=== PATIENT | female | born 1955 | race Caucasian/White ===

== ENCOUNTER → 2018-01-04 | Outpatient (CLI) | payer OTHER ==
[~2018-01-04] MED LIST: ALB17R INH; AMLO-1 PO; AMLO-98 PO; ATOR20TA22 PO; AZI250 PO; BUPXL150 PO; CLO1 PO; DIOVAN; FLU20 PO; HYDR-4309 PO; HYDR473S4 PO; LEVO50TA86 PO; LISI-362 PO; ONDA4TAB PO; TRAM-420 PO; TRAZ-156 PO
[2018-01-04 12:34] LABS: PLATELET COUNT, AUTOMATED 353 K/uL (150-450)
== END ==
LOC: LAB 12:11
PROVIDERS: ATTEND Internal Medicine Nephrology
DX: I12.9 Hypertensive chronic kidney disease with stage 1 through stage 4 chronic kidney disease, or unspecified chronic kidney disease (principal); N18.3 Chronic kidney disease, stage 3 (moderate)
CPT/HCPCS: 36415; 82040; 82310; 82374; 82435; 82565; 82570; 82947; 84100; 84132; 84156; 84295; 84520; 85025

== ENCOUNTER 2018-12-01 13:24 | Emergency (ER) | payer OTHER ==
[~2018-12-01 13:24] MED LIST changes: -HYDR-4309 PO; +HYDR-653 PO; -TRAZ-156 PO; +TRAZ50TA34 PO
[2018-12-01] MEDS ORDERED: DIPHTH/TETANUS/ACEL. PERTUSSIS IM ONLY ONE (13:35)
[2018-12-01] MEDS ORDERED: ACETAMINOPHEN 500 MG TAB PO ONE (13:35)
--- NOTE | 2018-12-01 13:35 | ER Report ---
History and Physical Time Seen By MD: 13:33 HPI/ROS CHIEF COMPLAINT: Jaw pain laceration HISTORY OF PRESENT ILLNESS: 63-year-old female mechanical fall tripping over a curb on her jaw she an obvious chin laceration and pain to the left transman dibular joint with some mild submandibular discomfort as well able to open her mouth but has some pain with full opening some mild tenderness with mastication patient denies any loss of consciousness any neck pain or discomfort or additional complaints REVIEW OF SYSTEMS: Respiratory: No cough, no dyspnea. Cardiovascular: No chest pain, no palpitations. Gastrointestinal: No vomiting, no abdominal pain. Musculoskeletal: Jaw pain Remainder of the 14 system rev: Yes Allergies: Coded Allergies: codeine (Unverified Adverse Reaction, Severe, SEVERE HEADACHE, 12/01/18) Penicillins (Unverified Adverse Reaction, Intermediate, HIVES, 12/01/18) Home Meds Reported Medications Trazodone Hcl (TRAZODONE HCL) 50 Mg Tablet, 50 MG PO QHS 06/06/15 Bupropion Hcl (Wellbutrin Xl) 150 Mg Tabcr, 150 MG PO QDAY, 0 Refills Take three 150mg tablets by mouth daily. 06/22/10 Fluoxetine Hcl (Prozac) 20 Mg Cap, 20 MG PO QDAY, 0 Refills 06/22/10 Clonazepam (Klonopin) 1 Mg Tab, 0.5 MG PO QHS, 0 Refills 06/22/10 Lisinopril (Lisinopril) 10 Mg Tablet, 10 MG PO DAILY, 0 Refills 06/22/10 Atorvastatin Calcium (Lipitor) 20 Mg Tablet, 20 MG PO DAILY 06/22/10 Reviewed Nurses Notes: Yes Old Medical Records Reviewed: Yes Hx Smoking: No Smoking Status: Never Smoker Hx Substance Use Disorder: No Hx Alcohol Use: No Constitutional Vital Sign - Last 24 Hours 12/01/18 12/01/18 12/01/18 12/01/18 13:24 13:29 13:29 13:30 Temp 98.5 Pulse ??? 69 B/P (MAP) 138/120 (126) 128/84 128/84 (99) Pulse Ox 95 O2 Delivery Room Air 12/01/18 12/01/18 12/01/18 12/01/18 13:45 13:54 14:15 14:24 Pulse 66 66 B/P (MAP) 124/89 (101) 127/79 (95) Pulse Ox 94 94 12/01/18 12/01/18 12/01/18 12/01/18 14:30 14:35 14:45 15:00 Pulse 64 B/P (MAP) 119/81 (94) 123/84 (97) 120/92 (101) Pulse Ox 91 12/01/18 12/01/18 12/01/18 12/01/18 15:05 15:15 15:30 15:35 Pulse 63 60 B/P (MAP) 123/82 (96) 117/84 (95) Pulse Ox 93 90 12/01/18 12/01/18 12/01/18 15:45 16:00 16:05 Pulse 60 B/P (MAP) 119/81 (94) 121/83 (96) Pulse Ox 92 Physical Exam General Appearance: The patient is alert, has no immediate need for airway pr otection and no current signs of toxicity. [ ] Eyes: Pupils equal and round no injection. Respiratory: Chest is non tender, lungs are clear to auscultation. Cardiac: regular rate and rhythm [ ] Gastrointestinal: Abdomen is soft and non tender, no masses, bowel sounds normal. Musculoskeletal: Neck: Neck is supple and non tender. Extremities have full range of motion and are non tender. Skin: No rashes or lesions. 3.5-4 cm angular laceration on the underneath of the submental area of the jaw Gen. examination some mild tenderness to palpation of the TMJ joint no obvious dislocation subluxation patient's neurovascular intact some tenderness to palpation in the submental area as well DIFFERENTIAL DIAGNOSIS: After history and physical exam differential diagnosis was considered for jaw dislocation jaw fractured jaw contusion laceration Medical Decision Making Data Points Result Diagram: 12/01/18 1611 12/01/18 1611 Laboratory Hematology Test 12/01/18 16:11 Red Blood Count 4.25 M/uL (4.17-5.56) Mean Corpuscular Volume 93.7 fL (80.0-96.0) Mean Corpuscular Hemoglobin 31.5 pg (26.0-33.0) Mean Corpuscular Hemoglobin Concent 33.6 g/dL (32.0-36.0) Red Cell Distribution Width 13.6 % (11.5-14.5) Mean Platelet Volume 6.6 fL (7.2-11.1) Neutrophils (%) (Auto) 77.5 % (39.4-72.5) Lymphocytes (%) (Auto) 12.8 % (17.6-49.6) Monocytes (%) (Auto) 7.5 % (4.1-12.4) Eosinophils (%) (Auto) 1.8 % (0.4-6.7) Basophils (%) (Auto) 0.4 % (0.3-1.4) Nucleated RBC Relative Count (auto) 0.0 /100WBC Neutrophils # (Auto) 6.3 K/uL (2.0-7.4) Lymphocytes # (Auto) 1.0 K/uL (1.3-3.6) Monocytes # (Auto) 0.6 K/uL (0.3-1.0) Eosinophils # (Auto) 0.1 K/uL (0.0-0.5) Basophils # (Auto) 0.0 K/uL (0.0-0.1) Nucleated RBC Absolute Count (auto) 0.00 K/uL Sodium Level 139 mmol/L (137-145) Potassium Level 4.8 mmol/L (3.5-5.0) Chloride Level 109 mmol/L (98-107) Carbon Dioxide Level 26 mmol/L (22-31) Blood Urea Nitrogen 10 mg/dl (7-18) Creatinine 1.20 mg/dl (0.52-1.04) Glomerular Filtration Rate Calc 45.7 Random Glucose 102 mg/dl (75-110) Calcium Level 9.2 mg/dl (8.4-10.2) Phosphorus Level 2.9 mg/dl (2.5-4.5) Magnesium Level 2.1 mg/dl (1.7-2.2) Total Bilirubin 1.8 mg/dl (0.2-1.3) Aspartate Amino Transf (AST/SGOT) 29 U/L (0-35) Alanine Aminotransferase (ALT/SGPT) 46 U/L (0-56) Alkaline Phosphatase 73 U/L (0-126) Total Protein 7.0 g/dl (6.3-8.2) Albumin 4.3 g/dl (3.5-5.0) Thyroid Stimulating Hormone (TSH) 1.19 uIU/ml (0.46-4.68) Free Thyroxine 1.28 ng/dl (0.78-2.19) [place] Level 0.6 mmol/L (0.6-1.2) Chemistry Test 12/01/18 16:11 White Blood Count 8.1 k/uL (4.5-11.0) Red Blood Count 4.25 M/uL (4.17-5.56) Hemoglobin 13.4 g/dL (12.0-16.0) Hematocrit 39.8 % (34.0-47.0) Mean Corpuscular Volume 93.7 fL (80.0-96.0) Mean Corpuscular Hemoglobin 31.5 pg (26.0-33.0) Mean Corpuscular Hemoglobin Concent 33.6 g/dL (32.0-36.0) Red Cell Distribution Width 13.6 % (11.5-14.5) Platelet Count 373 K/uL (150-450) Mean Platelet Volume 6.6 fL (7.2-11.1) Neutrophils (%) (Auto) 77.5 % (39.4-72.5) Lymphocytes (%) (Auto) 12.8 % (17.6-49.6) Monocytes (%) (Auto) 7.5 % (4.1-12.4) Eosinophils (%) (Auto) 1.8 % (0.4-6.7) Basophils (%) (Auto) 0.4 % (0.3-1.4) Nucleated RBC Relative Count (auto) 0.0 /100WBC Neutrophils # (Auto) 6.3 K/uL (2.0-7.4) Lymphocytes # (Auto) 1.0 K/uL (1.3-3.6) Monocytes # (Auto) 0.6 K/uL (0.3-1.0) Eosinophils # (Auto) 0.1 K/uL (0.0-0.5) Basophils # (Auto) 0.0 K/uL (0.0-0.1) Nucleated RBC Absolute Count (auto) 0.00 K/uL Glomerular Filtration Rate Calc 45.7 Calcium Level 9.2 mg/dl (8.4-10.2) Phosphorus Level 2.9 mg/dl (2.5-4.5) Magnesium Level 2.1 mg/dl (1.7-2.2) Total Bilirubin 1.8 mg/dl (0.2-1.3) Aspartate Amino Transf (AST/SGOT) 29 U/L (0-35) Alanine Aminotransferase (ALT/SGPT) 46 U/L (0-56) Alkaline Phosphatase 73 U/L (0-126) Total Protein 7.0 g/dl (6.3-8.2) Albumin 4.3 g/dl (3.5-5.0) Thyroid Stimulating Hormone (TSH) 1.19 uIU/ml (0.46-4.68) Free Thyroxine 1.28 ng/dl (0.78-2.19) [place] Level 0.6 mmol/L (0.6-1.2) Toxicology Test 12/01/18 16:11 [place] Level 0.6 mmol/L (0.6-1.2) ED Course/Re-evaluation ED Course Procedural note 63-year-old female Ryan laceration 1% lidocaine without epinephrine was administered about 4 mL around the cutanea border of the laceration 6 inverted sutures with 4-0 nylon was placed with good cosmesis patient tolerated well sterile dressing applied copiously irrigated prior to laceration repair sterile dressing applied after Decision to Disposition Date: Dec 01, 2018 Decision to Disposition Time: 17:41 Depart Departure Latest Vital Signs Vital Signs Date Time Temp Pulse Resp B/P (MAP) Pulse Ox O2 Delivery O2 Flow Rate FiO2 12/01/18 16:05 60 92 12/01/18 16:00 121/83 (96) 12/01/18 13:29 98.5 Room Air Impression: Primary Impression: Thyroid mass Condition: Improved Disposition: HOME OR SELF-CARE Referrals: TIMOTHY HO DO (PCP) CARMELO YE JR, MD 1 Day Patient Instructions: Soft Tissue Mass (ED) ANDREA WHITE MD Dec 01, 2018 13:35
--- NOTE | 2018-12-01 14:45 | RADIOLOGY IMAGING REPORT ---
FACILITY: [facility] PATIENT NAME: Liana Santos : 1955 MR: [id number] V: [id number] EXAM DATE: ORDERING PHYSICIAN: ANDREA WHITE TECHNOLOGIST: Location: [facility] Patient: Liana Santos : 1955 Visit/Account:[id number] Date of Sevice: 12/01/2018 Exam type: MANDIBLE < 4 VIEWS History: Trauma fell on ice, cut chin, pain Comparison: None. Findings: There is a vertical fracture through the left side of the mandible just anterior to the mandibular ra mus. This appears relatively nondisplaced. The mandibular condyles were not well seen on the Janelle' s view therefore if a mandibular condyle fracture is of clinical concern a CT is recommended IMPRESSION: 1. There is a nondisplaced vertical fracture through the left-sided the mandible just anterior to th e ramus Mandibular condyles not ideally evaluated Report Dictated By: Liana Irizarry MD at 12/01/2018 2:34 PM Report E-Signed By: Liana Irizarry MD at 12/01/2018 2:42 PM WSN:[email or web address]
--- NOTE | 2018-12-01 15:13 | RADIOLOGY IMAGING REPORT ---
FACILITY: [facility] [place] PATIENT NAME: Liana Santos : 1955 MR: [id number] V: [id number] EXAM DATE: ORDERING PHYSICIAN: ANDREA WHITE TECHNOLOGIST: Location: [facility] [place] Patient: Liana Santos : 1955 Visit/Account:[id number] Date of Sevice: 12/01/2018 EXAMINATION: CT Head without intravenous contrast CT Cervical spine without intravenous contrast HISTORY: Trauma. TECHNIQUE: Head: Axial images were obtained from the skull base to the vertex without intravenous contrast. Sa gittal and coronal reformatted images are also submitted. Cervical spine: Axial images were obtained from the skull base through the upper thoracic spine with out IV contrast administration. Coronal and sagittal reformatted images were obtained from the axial source data. One of the following dose optimization techniques was utilized in the performance of this exam: Autom ated exposure control; adjustment of the mA and/or kV according to the patient's size; or use of an i terative reconstruction technique. Specific details can be referenced in the facility's radiology C T exam operational policy. COMPARISON: Brain MRI dated 01/28/2017. FINDINGS: HEAD: Brain volume: Mild generalized volume loss. Ventricles: Negative. Acute ischemic changes: None. Hemorrhage: None. Masses / edema: None. Aguayo-white: Mild encephalomalacia/gliosis in the right posterior temporal lobe. White matter: Negative. Vessels: Negative. Extra-axial: Negative. Calvarium / skull base: Negative. Visualized sinuses / orbits: Acute comminuted and mildly displaced left mandibular condyle fracture with dislocation of the left temporomandibular joint. CERVICAL SPINE: Alignment: Straightening of the normal lordosis with minimal convex rightward curvature. Cranio-cervical junction: Moderate degenerative changes in the atlantodental joint. Otherwise negativ e. Vertebral bodies: Negative. Posterior elements: Multilevel facet hypertrophy. Hardware: None. Disc Spaces: Multilevel degenerative disc disease. Soft tissues: Surgical clips in the region of the thyroid gland. The majority of the thyroid gland ap pears to have been removed and there is a large partially imaged mass in the left thyroid bed measuri ng at least 5.2 x 5.2 x 2.8 cm. Visualized upper chest: Negative. IMPRESSION: 1. No acute intracranial abnormality. 2. No acute cervical spine fracture. 3. Acute comminuted and mildly displaced fracture of left mandibular condyle with dislocation of the temporomandibular joint. 4. Surgical clips in the region of the thyroid gland. The majority of the thyroid gland appears to doshi ve been removed and there is a large partially imaged mass in the left thyroid bed measuring at least 5.2 x 5.2 x 2.8 cm. If this patient has a history of thyroid cancer this is suspicious for recurrenc e. 5. Multilevel degenerative disc disease and facet hypertrophy in the cervical spine. 6. Mild encephalomalacia/gliosis in the right posterior temporal lobe. Report Dictated By: Willem Oneil MD at 12/01/2018 2:55 PM Report E-Signed By: Willem Oneil MD at 12/01/2018 3:09 PM WSN:[id number]
--- NOTE | 2018-12-01 15:14 | RADIOLOGY IMAGING REPORT ---
FACILITY: [facility] PATIENT NAME: Liana Santos : 1955 MR: [id number] V: [id number] EXAM DATE: ORDERING PHYSICIAN: ANDREA WHITE TECHNOLOGIST: Location: [facility] Patient: Liana Santos : 1955 Visit/Account:[id number] Date of Sevice: 12/01/2018 EXAMINATION: CT Head without intravenous contrast CT Cervical spine without intravenous contrast HISTORY: Trauma. TECHNIQUE: Head: Axial images were obtained from the skull base to the vertex without intravenous contrast. Sa gittal and coronal reformatted images are also submitted. Cervical spine: Axial images were obtained from the skull base through the upper thoracic spine with out IV contrast administration. Coronal and sagittal reformatted images were obtained from the axial source data. One of the following dose optimization techniques was utilized in the performance of this exam: Autom ated exposure control; adjustment of the mA and/or kV according to the patient's size; or use of an i terative reconstruction technique. Specific details can be referenced in the facility's radiology C T exam operational policy. COMPARISON: Brain MRI dated 01/28/2017. FINDINGS: HEAD: Brain volume: Mild generalized volume loss. Ventricles: Negative. Acute ischemic changes: None. Hemorrhage: None. Masses / edema: None. Aguayo-white: Mild encephalomalacia/gliosis in the right posterior temporal lobe. White matter: Negative. Vessels: Negative. Extra-axial: Negative. Calvarium / skull base: Negative. Visualized sinuses / orbits: Acute comminuted and mildly displaced left mandibular condyle fracture with dislocation of the left temporomandibular joint. CERVICAL SPINE: Alignment: Straightening of the normal lordosis with minimal convex rightward curvature. Cranio-cervical junction: Moderate degenerative changes in the atlantodental joint. Otherwise negativ e. Vertebral bodies: Negative. Posterior elements: Multilevel facet hypertrophy. Hardware: None. Disc Spaces: Multilevel degenerative disc disease. Soft tissues: Surgical clips in the region of the thyroid gland. The majority of the thyroid gland ap pears to have been removed and there is a large partially imaged mass in the left thyroid bed measuri ng at least 5.2 x 5.2 x 2.8 cm. Visualized upper chest: Negative. IMPRESSION: 1. No acute intracranial abnormality. 2. No acute cervical spine fracture. 3. Acute comminuted and mildly displaced fracture of left mandibular condyle with dislocation of the temporomandibular joint. 4. Surgical clips in the region of the thyroid gland. The majority of the thyroid gland appears to doshi ve been removed and there is a large partially imaged mass in the left thyroid bed measuring at least 5.2 x 5.2 x 2.8 cm. If this patient has a history of thyroid cancer this is suspicious for recurrenc e. 5. Multilevel degenerative disc disease and facet hypertrophy in the cervical spine. 6. Mild encephalomalacia/gliosis in the right posterior temporal lobe. Report Dictated By: Willem Oneil MD at 12/01/2018 2:55 PM Report E-Signed By: Willem Oneil MD at 12/01/2018 3:09 PM WSN:[id number]
--- NOTE | 2018-12-01 15:57 | EKG ---
FACILITY: [facility] [place] PATIENT NAME: ANTIONETTE NEW : [id number] MR: [id number] V: [id number] EXAM DATE: ORDERING PHYSICIAN: ANDREA WHITE TECHNOLOGIST: Test Reason : weakness Blood Pressure : / mmHG Vent. Rate : 066 BPM Atrial Rate : 066 BPM P-R Int : 122 ms QRS Dur : 088 ms QT Int : 466 ms P-R-T Axes : 011 068 067 degrees QTc Int : 488 ms Normal sinus rhythm T inversion consistent with ant/sep ischemia vs normal variant Prolonged QT Abnormal ECG No previous ECGs available Confirmed by FRANCE ALVARADO ([id number]) on 12/02/2018 1:16:13 AM Referred By: Confirmed By:FRANCE ALVARADO
[2018-12-01 16:00] VITALS: BP 121/83
[2018-12-01 16:22] LABS: PLATELET COUNT, AUTOMATED 373 K/uL (150-450)
== END 2018-12-01 18:09 | disposition home or self-care (01) ==
LOC: ER 13:30
DX: S01.81XA Laceration without foreign body of other part of head, initial encounter (principal); S02.612A Fracture of condylar process of left mandible, initial encounter for closed fracture; S03.02XA Dislocation of jaw, left side, initial encounter; E07.89 Other specified disorders of thyroid; W01.198A Fall on same level from slipping, tripping and stumbling with subsequent striking against other object, initial encounter
CPT/HCPCS: 36415; 70100; 70450; 72125; 80178; 82040; 82247; 82310; 82374; 82435; 82565; 82947; 83735; 84075; 84100; 84132; 84155; 84295; 84439; 84443; 84450; 84460; 84481; 84520; 85025; 90471; 90715; 93005; 99284

== ENCOUNTER → 2018-12-13 | Outpatient (CLI) | payer OTHER ==
--- NOTE | 2018-12-13 14:52 | RADIOLOGY IMAGING REPORT ---
FACILITY: [facility] PATIENT NAME: Liana Santos : 1955 MR: [id number] V: [id number] EXAM DATE: ORDERING PHYSICIAN: CARMELO YE TECHNOLOGIST: Location: [facility] Patient: Liana Santos : 1955 Visit/Account:[id number] Date of Sevice: 12/13/2018 THYROID Indication: Evaluate for possible mass. Comparison: None. Findings: There are postoperative changes from a right-sided thyroidectomy. On the left side of the trachea, there is a heterogeneous echotexture mass, in the shape of a left th yroid lobe that measures 4.6 x 2.6 x 4.7 cm. No abnormal lymph nodes are seen. IMPRESSION: 1. Postoperative changes from right-sided x-ray. 2. Although the notes state the thyroid was removed, in the left bed, a heterogeneous echotexture ma ss is seen, in the shape of a left thyroid lobe. This is the mass seen on the prior CT neck. Recommend clinical correlation for what the surgical history is. If patient has a right-sided thyroi dectomy, the soft tissue mass would represent the remaining left thyroid lobe. If patient has a surg ical history of complete thyroidectomy, this would represent a mass in the thyroid bed, and ultrasoun d guided biopsy is recommended. Report Dictated By: Silvino Weiss at 12/13/2018 2:36 PM Report E-Signed By: Silvino Weiss at 12/13/2018 2:47 PM WSN:[email or web address]
== END ==
LOC: US 12-08 01:26
PROVIDERS: ATTEND Otolaryngology
DX: E07.9 Disorder of thyroid, unspecified (principal)
CPT/HCPCS: 76536

== ENCOUNTER → 2018-12-31 | Outpatient (CLI) | payer OTHER ==
[~2018-12-31] MED LIST changes: +BUS5 PO; +EZET10TA41 PO; +LEVO50TA80 PO; +LIT150 PO
[2018-12-31 11:14] LABS: INR 1.07
--- NOTE | 2018-12-31 13:00 | RADIOLOGY IMAGING REPORT ---
FACILITY: [facility] PATIENT NAME: Liana Santos : 1955 MR: [id number] V: [id number] EXAM DATE: ORDERING PHYSICIAN: CARMELO YE TECHNOLOGIST: Location: [facility] [place] Patient: Liana Santos : 1955 Visit/Account:[id number] Date of Sevice: 12/31/2018 Ultrasound-guided left thyroid needle biopsy. HISTORY: Mass in the left thyroid bed after thyroidectomy. COMPARISON: Thyroid ultrasound 12/08/2018, and cervical spine CT scan 12/01/2018. The procedure and risks including bleeding, infection, and inadequate sampling were explained to the patient who agreed to proceed. A preliminary ultrasound was obtained confirming a 4.7 cm heterogeneou s mass in the left thyroid bed. Ultrasound images were recorded and archived. Following sterile prep and drape the skin and subcutaneous tissues were anesthetized with one percent lidocaine without epin ephrine. Under direct ultrasound guidance a 25 gauge needle was advanced into the nodule with care ta nick to avoid the carotid artery and other major structures. A specimen was obtained using capillary t echnique. Air dried smears were prepared. Remaining material was placed into cytofixative. 2 additio nal 25 gauge needles were used to sample different portions of the lesion. Two additional passes wer e made with 25-gauge needles to be held in reserve for Afirma testing. Following confirmation by the pathologist that diagnostic tissue had been obtained, the procedure was terminated. The patient lynda rated the procedure well without complications. IMPRESSION: Ultrasound guided left thyroid biopsy. Report Dictated By: Andrei Zazueta MD at 12/31/2018 12:54 PM Report E-Signed By: Andrei Zazueta MD at 12/31/2018 12:57 PM WSN:[email or web address]
== END ==
LOC: US 02:33
PROVIDERS: ATTEND Otolaryngology
DX: E04.1 Nontoxic single thyroid nodule (principal)
CPT/HCPCS: 10005; 36415; 76942; 85610; 88104; 88172